=== PATIENT | male | born 2000 | race Caucasian/White ===

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

== ENCOUNTER 2022-04-30 20:37 | Emergency (ER) | payer OTHER ==
[2022-04-30] MEDS: Sodium Chloride 0.9% 1,000 ML IV ONE (21:03)
[2022-04-30] MEDS: Sodium Chloride 0.9% 10 ML Syringe FLUSH PRN (21:04)
[2022-04-30] MEDS: Sodium Chloride 0.9% 2.5 ML Syringe FLUSH PRN (21:04)
[2022-04-30 21:22] LABS: CARBON DIOXIDE,CO2 28.7 mmol/L (21.0-32.0); POTASSIUM,K 4.2 mmol/L (3.5-5.1)
== END 2022-04-30 22:14 | disposition home or self-care (01) ==
LOC: MW.ED 20:37
DX: R07.89 Other chest pain (principal); I10 Essential (primary) hypertension; E11.9 Type 2 diabetes mellitus without complications; Z88.8 Allergy status to other drugs, medicaments and biological substances
CPT/HCPCS: 36415; 71045; 80053; 83690; 84484; 85025; 85379; 99285; J3490; J7030; 93010; 99283

== ENCOUNTER 2022-11-08 18:28 | Emergency (ER) | payer OTHER ==
[2022-11-08] MEDS ORDERED: Sulfamethoxazole/Trimethoprim 800-160 MG Tab PO ONE (18:44)
== END 2022-11-08 19:29 | disposition home or self-care (01) ==
LOC: MW.ED 18:28
DX: S80.01XA Contusion of right knee, initial encounter (principal); Z88.1 Allergy status to other antibiotic agents; W22.8XXA Striking against or struck by other objects, initial encounter
CPT/HCPCS: 73562; 99283; A9270